=== PATIENT | male | born 1935 | race African-American/Black ===

== ENCOUNTER 2019-08-19 10:58 | Emergency (ER) | payer SELFPAY ==
[~2019-08-19] VITALS: Ht 180.3 cm; Wt 77.3 kg
[~2019-08-19 10:58] MED LIST: ASPI-986 PO; CLOP75TA4 PO; FAMO40TA70 PO; SIMV80TA90 PO
[2019-08-19] MEDS ORDERED: SODIUM CHLORIDE 0.9% 1,000 ML IV ONE (12:01)
[2019-08-19 12:33] LABS: HEMOGLOBIN. 13.7 g/dL (14.0-18.0); MEAN CORPUSCULAR HEMOGLOBIN 34.1 pg (28.0-32.0); MEAN CORPUSCULAR VOLUME 99.9 fL (80.0-94.0); MEAN PLATELET VOLUME 8.2 fl (7.4-10.4); PLATELET 223 x1000/uL (130-400); RED CELL DISTRIBUTION WIDTH 13.1 % (11.6-14.6)
[2019-08-19 12:40] LABS: CHLORIDE 109 mEq/L (98-107)
[2019-08-19 12:55] LABS: PLATELET ESTIMATE NORMAL
[2019-08-19 12:59] LABS: CLARITY URINE CLEAR (CLEAR); COLOR URINE YELLOW (YELLOW); KETONES URINE NEGATIVE (NEGATIVE); LEUKOCYTE ESTERASE URINE NEGATIVE (NEGATIVE); NITRITE URINE NEGATIVE (NEGATIVE); OCCULT BLOOD URINE NEGATIVE (NEGATIVE); PH URINE 5.5 (4.5-8.0); PROTEIN URINE NEGATIVE (NEGATIVE); SPECIFIC GRAVITY URINE 1.015 (1.005-1.030); UROBILINOGEN URINE 0.2 E.U./dL (0.2-1.0)
[2019-08-19 16:07] VITALS: BP 130/76
== END 2019-08-19 16:09 | disposition home or self-care (01) ==
LOC: ER 10:58 → CANBEDREQ 16:20
DX: M54.12 Radiculopathy, cervical region (principal); I10 Essential (primary) hypertension; I11.9 Hypertensive heart disease without heart failure
CPT/HCPCS: 36415; 70450; 71045; 72141; 80053; 81003; 82962; 83690; 83735; 83880; 84484; 85025; 93005; 99285; J7030

== ENCOUNTER → 2019-11-21 | Outpatient (CLI) | payer MEDICARE ==
[~2019-11-21] MED LIST changes: +ASPI-1158 MT; +ATOR40TA70 PO; +FINA5TAB11 PO; +HYDR-4001 MT; +IRBE150T24 PO
== END | disposition home or self-care (01) ==
LOC: RAD 12:42
PROVIDERS: ATTEND Specialist
DX: Z01.818 Encounter for other preprocedural examination (principal); J44.9 Chronic obstructive pulmonary disease, unspecified; R91.1 Solitary pulmonary nodule
CPT/HCPCS: 71045

== ENCOUNTER 2019-11-25 05:32 | Inpatient (IN) | payer MEDICARE ==
[2019-11-25] VITALS (59 sets, daily range): BP systolic 87–153; BP diastolic 52–115
[~2019-11-25] VITALS: Ht 180.3 cm; Wt 80.3 kg
[~2019-11-25 05:32] MED LIST changes: -ASPI-1158 MT; -ATOR40TA70 PO; -FINA5TAB11 PO; -HYDR-4001 MT; -IRBE150T24 PO
[2019-11-25] MEDS ORDERED: IRBE150T24 PO (06:11)
[2019-11-25] MEDS ORDERED: FINA5TAB11 PO (06:11)
[2019-11-25] MEDS ORDERED: ATOR40TA70 PO (06:15)
[2019-11-25] MEDS ORDERED: LACTATED RINGERS 1,000 ML IV SCH (06:15)
[2019-11-25] MEDS ORDERED: LIDOCAINE HCL/EPINEPHRINE 1%-EPI 1:100,000 20 ML VIAL ONE (06:34)
[2019-11-25] MEDS ORDERED: BACITRACIN 50,000 UNITS/VIAL ONE (06:35)
[2019-11-25] MEDS ORDERED: THROMBIN (BOVINE) 5000 UNITS/VIAL TOP ONE (06:35)
[2019-11-25] MEDS ORDERED: ROCURONIUM BROMIDE 10MG/ML VIAL 5ML IV ONE (06:48)
[2019-11-25] MEDS ORDERED: PROPOFOL 200MG/20ML VIAL IV ONE (06:48)
[2019-11-25] MEDS ORDERED: NEOSTIGMINE METHYLSULFATE 1MG/ML 10 ML VIAL ONE (06:48)
[2019-11-25] MEDS ORDERED: FENTANYL CITRATE/PF 50MCG/ML 2ML VIAL ONE (06:48)
[2019-11-25] MEDS ORDERED: GLYCOPYRROLATE 0.2 MG/ML 2ML VIAL ONE ×3 (06:49→09:22)
[2019-11-25] MEDS ORDERED: MIDAZOLAM HCL 2 MG/2 ML VIAL ONE (06:49)
[2019-11-25] MEDS ORDERED: DEXAMETHASONE 4MG/ML 1ML VIAL ONE (06:50)
[2019-11-25] MEDS ORDERED: ONDANSETRON HCL 4MG/2ML INJ ONE (06:50)
[2019-11-25] MEDS ORDERED: MORPHINE SULFATE 4 MG/ML CPJ (NOT FOR IM USE) IV PRN (07:15)
[2019-11-25] MEDS ORDERED: HYDROCODONE/ACETAMINOPHEN 5/325MG TABLET PO PRN (07:15)
[2019-11-25] MEDS ORDERED: ONDANSETRON HCL 4MG/2ML INJ IV PRN (07:15)
[2019-11-25] MEDS ORDERED: HYDROMORPHONE HCL/PF 2MG/ML (OR) ONE (07:25)
[2019-11-25] MEDS ORDERED: EPINEPHRINE 1:1000 1 MG/ML AMP ONE (08:58)
[2019-11-25] MEDS ORDERED: CEFAZOLIN SODIUM 1000MG/VIAL ONE (08:58)
[2019-11-25] MEDS ORDERED: SODIUM CHLORIDE 0.9% 10ML VIAL ONE (08:59)
[2019-11-25] MEDS ORDERED: LIDOCAINE HCL/PF 1% 10 MG/ML 5ML VIAL ONE (08:59)
[2019-11-25] MEDS ORDERED: LABETALOL HCL 5MG/ML VIAL 20ML IV ONE (08:59)
[2019-11-25] MEDS ORDERED: NALOXONE INJ IV PRN (11:45)
[2019-11-25] MEDS ORDERED: ONDANSETRON INJ IV PRN (11:45)
[2019-11-25] MEDS: HYDROMORPHONE PCA 10MG/50ML IV PRN (12:06)
[2019-11-25] MEDS: DEXT 5%/LACTATED RINGERS 1,000 ML IV SCH ×3 (12:10→19:37)
[2019-11-25] MEDS: NICARDIPINE 100 MG in SODIUM CHLORIDE 0.9% 60 ML IV PRN (12:11)
[2019-11-25] MEDS: DEXAMETHASONE 4MG/ML 1ML VIAL IV SCH ×3 (12:12→17:54)
[2019-11-25] MEDS ORDERED: CEFAZOLIN SODIUM 1000MG/VIAL IV SCH (14:00)
[2019-11-25] MEDS: CEFAZOLIN 1000MG PREMIX 50 ML IV SCH (17:17)
[2019-11-25] MEDS: ATORVASTATIN CALCIUM 20MG TABLET PO SCH (20:05)
[2019-11-26] VITALS (41 sets, daily range): BP systolic 67–167; BP diastolic 51–96
[2019-11-26] MEDS: DEXAMETHASONE 4MG/ML 1ML VIAL IV SCH ×3 (00:35→12:43)
[2019-11-26] MEDS: CEFAZOLIN 1000MG PREMIX 50 ML IV SCH ×3 (01:42→17:25)
[2019-11-26] MEDS ORDERED: ASPIRIN 81MG TABLET PO SCH (05:00)
[2019-11-26] MEDS: DEXT 5%/LACTATED RINGERS 1,000 ML IV SCH (06:31)
[2019-11-26 06:49] LABS: HEMATOCRIT. 31.5 % (42.0-52.0); HEMOGLOBIN. 10.9 g/dL (14.0-18.0); MEAN CORPUSCULAR HEMOGLOBIN 34.5 pg (28.0-32.0); MEAN CORPUSCULAR VOLUME 99.4 fL (80.0-94.0); MEAN PLATELET VOLUME 7.7 fl (7.4-10.4); PLATELET 180 x1000/uL (130-400); RED BLOOD CELL COUNT 3.17 mill/uL (4.7-6.1); RED CELL DISTRIBUTION WIDTH 13.5 % (11.6-14.6)
[2019-11-26 07:48] LABS: CHLORIDE 105 mEq/L (98-107)
[2019-11-26 14:21] LABS: PLATELET ESTIMATE NORMAL
[2019-11-26] MEDS: ATORVASTATIN CALCIUM 20MG TABLET PO SCH (20:52)
[2019-11-27] VITALS (94 sets, daily range): BP systolic 102–164; BP diastolic 52–99
[2019-11-27] MEDS: CEFAZOLIN 1000MG PREMIX 50 ML IV SCH ×2 (01:31→10:16)
[2019-11-27] MEDS: NICARDIPINE 100 MG in SODIUM CHLORIDE 0.9% 60 ML IV PRN (01:31)
[2019-11-27] MEDS: HYDROMORPHONE PCA 10MG/50ML IV PRN (02:13)
[2019-11-27 07:20] LABS: HEMATOCRIT. 32.6 % (42.0-52.0); HEMOGLOBIN. 11.1 g/dL (14.0-18.0); MEAN CORPUSCULAR VOLUME 99.8 fL (80.0-94.0); MEAN PLATELET VOLUME 8.5 fl (7.4-10.4); PLATELET 207 x1000/uL (130-400); RED BLOOD CELL COUNT 3.26 mill/uL (4.7-6.1); RED CELL DISTRIBUTION WIDTH 13.6 % (11.6-14.6)
[2019-11-27 07:29] LABS: CHLORIDE 104 mEq/L (98-107)
[2019-11-27 12:31] LABS: PLATELET ESTIMATE NORMAL
[2019-11-27] MEDS ORDERED: BISACODYL 10MG SUPP PR PRN (15:45)
[2019-11-27] MEDS: LACTULOSE 20G/30ML UDC PO SCH ×2 (17:00→20:41)
[2019-11-27] MEDS: DOCUSATE SODIUM 100MG CAPSULE PO SCH (17:00)
[2019-11-27] MEDS: DEXAMETHASONE 4MG/ML 1ML VIAL IV SCH (17:00)
[2019-11-27] MEDS: POLYETHYLENE GLYCOL 3350 (17GM) 1 DOSE PACK PO SCH (20:42)
[2019-11-27] MEDS: ATORVASTATIN CALCIUM 20MG TABLET PO SCH (21:34)
[2019-11-28] VITALS (44 sets, daily range): BP systolic 101–170; BP diastolic 22–102
[2019-11-28] MEDS: DEXAMETHASONE 4MG/ML 1ML VIAL IV SCH ×4 (00:08→17:14)
[2019-11-28 07:00] LABS: HEMATOCRIT. 32.5 % (42.0-52.0); HEMOGLOBIN. 11.1 g/dL (14.0-18.0); MEAN CORPUSCULAR HEMOGLOBIN 34.2 pg (28.0-32.0); MEAN PLATELET VOLUME 8.7 fl (7.4-10.4); PLATELET 199 x1000/uL (130-400); RED BLOOD CELL COUNT 3.25 mill/uL (4.7-6.1); RED CELL DISTRIBUTION WIDTH 13.6 % (11.6-14.6)
[2019-11-28 07:40] LABS: CHLORIDE 103 mEq/L (98-107)
[2019-11-28] MEDS: DOCUSATE SODIUM 100MG CAPSULE PO SCH ×2 (08:31→17:14)
[2019-11-28] MEDS: LACTULOSE 20G/30ML UDC PO SCH ×3 (08:31→20:43)
[2019-11-28 10:05] LABS: PLATELET ESTIMATE NORMAL
[2019-11-28] MEDS: ATORVASTATIN CALCIUM 20MG TABLET PO SCH (20:43)
[2019-11-28] MEDS: POLYETHYLENE GLYCOL 3350 (17GM) 1 DOSE PACK PO SCH (20:44)
[2019-11-29] VITALS: BP 154/84
[2019-11-29] MEDS: HYDROMORPHONE PCA 10MG/50ML IV PRN (00:20)
[2019-11-29 04:00] VITALS: BP 159/84
[2019-11-29 05:43] LABS: HEMATOCRIT. 32.7 % (42.0-52.0); HEMOGLOBIN. 11.2 g/dL (14.0-18.0); MEAN CORPUSCULAR HEMOGLOBIN 34.2 pg (28.0-32.0); MEAN CORPUSCULAR VOLUME 99.9 fL (80.0-94.0); MEAN PLATELET VOLUME 8.5 fl (7.4-10.4); PLATELET 220 x1000/uL (130-400); RED BLOOD CELL COUNT 3.28 mill/uL (4.7-6.1); RED CELL DISTRIBUTION WIDTH 13.3 % (11.6-14.6)
[2019-11-29 06:01] LABS: CHLORIDE 103 mEq/L (98-107)
[2019-11-29] MEDS: DOCUSATE SODIUM 100MG CAPSULE PO SCH ×2 (09:00→17:00)
[2019-11-29] MEDS: LACTULOSE 20G/30ML UDC PO SCH ×3 (09:00→17:00)
[2019-11-29 12:00] VITALS: BP 153/64
[2019-11-29] MEDS: AMLODIPINE 5MG TABLET PO SCH (13:21)
[2019-11-29 13:26] LABS: PLATELET ESTIMATE NORMAL
[2019-11-29 16:00] VITALS: BP 161/83
[2019-11-29 20:00] VITALS: BP 142/77
[2019-11-29] MEDS: POLYETHYLENE GLYCOL 3350 (17GM) 1 DOSE PACK PO SCH (21:02)
[2019-11-29] MEDS: ATORVASTATIN CALCIUM 20MG TABLET PO SCH (21:02)
[2019-11-30] VITALS: BP 135/79
[2019-11-30 04:00] VITALS: BP 117/87
[2019-11-30 08:00] VITALS: BP 108/69
[2019-11-30 08:01] LABS: HEMATOCRIT. 35.4 % (42.0-52.0); HEMOGLOBIN. 12.3 g/dL (14.0-18.0); MEAN CORPUSCULAR HEMOGLOBIN 34.3 pg (28.0-32.0); MEAN CORPUSCULAR VOLUME 98.6 fL (80.0-94.0); MEAN PLATELET VOLUME 8.3 fl (7.4-10.4); PLATELET 255 x1000/uL (130-400); RED BLOOD CELL COUNT 3.59 mill/uL (4.7-6.1); RED CELL DISTRIBUTION WIDTH 13.4 % (11.6-14.6)
[2019-11-30 08:02] LABS: CHLORIDE 103 mEq/L (98-107)
[2019-11-30] MEDS: DOCUSATE SODIUM 100MG CAPSULE PO SCH ×2 (08:39→17:17)
[2019-11-30] MEDS: AMLODIPINE 5MG TABLET PO SCH (08:47)
[2019-11-30] MEDS ORDERED: ASPI-1158 MT (11:30)
[2019-11-30] MEDS ORDERED: HYDR-4001 MT (11:47)
[2019-11-30 12:00] VITALS: BP 110/63
[2019-11-30] MEDS ORDERED: HYDROCODONE/APAP 7.5/325MG 1 TAB TABLET PO PRN (13:30)
[2019-11-30] MEDS ORDERED: HYDROMORPHONE HCL/PF 2MG/ML CPJ IV PRN (13:30)
[2019-11-30 14:26] LABS: PLATELET ESTIMATE NORMAL
[2019-11-30 15:52] VITALS: BP 110/63
[2019-11-30 16:00] VITALS: BP 104/61
== END 2019-11-30 18:30 | disposition home or self-care (01) | DRG 28 ==
LOC: OR 05:32 → 5EST 05:33 → 5WST 11-28 22:55
PROVIDERS: ADMIT Neurological Surgery; ATTEND Internal Medicine
PROC: 0RG20K1 Fusion of 2 or more Cervical Vertebral Joints with Nonautologous Tissue Substitute, Posterior Approach, Posterior Column, Open Approach (ICD-10-PCS; principal; 2019-11-25)
DX: I63.9 Cerebral infarction, unspecified (principal); G82.50 Quadriplegia, unspecified; G95.20 Unspecified cord compression; I50.32 Chronic diastolic (congestive) heart failure; K59.2 Neurogenic bowel, not elsewhere classified; M48.02 Spinal stenosis, cervical region; I34.0 Nonrheumatic mitral (valve) insufficiency; I11.0 Hypertensive heart disease with heart failure; Z96.643 Presence of artificial hip joint, bilateral; Z95.5 Presence of coronary angioplasty implant and graft; I25.10 Atherosclerotic heart disease of native coronary artery without angina pectoris; N40.0 Benign prostatic hyperplasia without lower urinary tract symptoms; E78.5 Hyperlipidemia, unspecified; D64.9 Anemia, unspecified; D72.829 Elevated white blood cell count, unspecified; E78.00 Pure hypercholesterolemia, unspecified; G31.84 Mild cognitive impairment of uncertain or unknown etiology; K59.00 Constipation, unspecified; M48.061 Spinal stenosis, lumbar region without neurogenic claudication; N40.1 Benign prostatic hyperplasia with lower urinary tract symptoms; Z82.49 Family history of ischemic heart disease and other diseases of the circulatory system; Z91.81 History of falling; R26.89 Other abnormalities of gait and mobility; R31.9 Hematuria, unspecified
CPT/HCPCS: 36415; 70544; 70553; 72040; 72141; 76000; 80048; 82962; 83735; 85025; 86850; 86900; 88304; 88311; 92523; 92610; 93005; 93306; 93880; 95925; 95926; 95928; 95929; 95940; 97110; 97112; 97116; 97163; 97166; 97530; 97535; C1713; J0690; J1100; J1170; J2250; J2270; J2405; J2704; J2710; J3010; J3490; J7050; J7121; L0172

== ENCOUNTER 2019-12-12 11:49 | Emergency (ER) | payer MEDICARE ==
[~2019-12-12] VITALS: Ht 180.3 cm; Wt 76.0 kg
[~2019-12-12 11:49] MED LIST changes: +ASPI-1158 MT; -ASPI-986 PO; +ATOR40TA70 PO; -CLOP75TA4 PO; +FINA5TAB11 PO; +HYDR-4001 MT; +IRBE150T24 PO; -SIMV80TA90 PO
[2019-12-12] MEDS ORDERED: NA PHOS,M-B/NA PHOS,DI-BA ENEMA 118ML PR ONE (13:45)
[2019-12-12 14:02] LABS: CLARITY URINE CLEAR (CLEAR); COLOR URINE YELLOW (YELLOW); KETONES URINE NEGATIVE (NEGATIVE); LEUKOCYTE ESTERASE URINE NEGATIVE (NEGATIVE); NITRITE URINE NEGATIVE (NEGATIVE); OCCULT BLOOD URINE NEGATIVE (NEGATIVE); PROTEIN URINE NEGATIVE (NEGATIVE); SPECIFIC GRAVITY URINE 1.019 (1.005-1.030)
[2019-12-12 16:30] VITALS: BP 106/46
== END 2019-12-12 17:01 | disposition home or self-care (01) ==
LOC: ER 11:49
DX: K59.00 Constipation, unspecified (principal); G89.18 Other acute postprocedural pain; I10 Essential (primary) hypertension; Z76.0 Encounter for issue of repeat prescription; N40.0 Benign prostatic hyperplasia without lower urinary tract symptoms; Z98.1 Arthrodesis status
CPT/HCPCS: 81003; 99283

== ENCOUNTER 2022-08-22 14:17 | Emergency (ER) | payer MEDICARE ==
[~2022-08-22] VITALS: Ht 180.3 cm; Wt 80.0 kg
[~2022-08-22 14:17] MED LIST changes: -ASPI-1158 MT; +ASPI-1406 MT
[2022-08-22] MEDS ORDERED: IBUPROFEN 600MG TABLET PO ONE (17:30)
[2022-08-22] MEDS ORDERED: CYCL10TA21 MT (17:42)
[2022-08-22] MEDS ORDERED: IBUP-2029 MT (17:42)
[2022-08-22 17:43] VITALS: BP 165/96
== END 2022-08-22 17:51 | disposition home or self-care (01) ==
LOC: ER 14:17
DX: S60.221A Contusion of right hand, initial encounter (principal); M19.041 Primary osteoarthritis, right hand; I10 Essential (primary) hypertension; I25.2 Old myocardial infarction; Z98.1 Arthrodesis status; Z98.61 Coronary angioplasty status; Z79.82 Long term (current) use of aspirin; W10.8XXA Fall (on) (from) other stairs and steps, initial encounter; Y93.89 Activity, other specified; Y92.018 Other place in single-family (private) house as the place of occurrence of the external cause
CPT/HCPCS: 73130; 99283; A4565

== ENCOUNTER 2023-06-16 09:31 | Emergency (ER) | payer MEDICARE ==
[~2023-06-16] VITALS: Ht 175.3 cm; Wt 68.0 kg
[~2023-06-16 09:31] MED LIST changes: +CYCL10TA21 MT; +IBUP-2029 MT
[2023-06-16 09:40] VITALS: BP 130/76; O2SAT 100
[2023-06-16] MEDS ORDERED: BACITRACIN ZINC OINT UDPKT TOP ONE (11:45)
[2023-06-16] MEDS ORDERED: DOXY100T28 MT (12:48)
[2023-06-16] MEDS ORDERED: BO1 TP (12:48)
[2023-06-16 13:21] VITALS: PULSE 71; RESP 20; TEMP 97.6
== END 2023-06-16 13:23 | disposition home or self-care (01) ==
LOC: ER 09:31
DX: S80.811A Abrasion, right lower leg, initial encounter (principal); I25.2 Old myocardial infarction; I10 Essential (primary) hypertension; Z86.73 Personal history of transient ischemic attack (TIA), and cerebral infarction without residual deficits; W01.0XXA Fall on same level from slipping, tripping and stumbling without subsequent striking against object, initial encounter; Y93.89 Activity, other specified; Y92.89 Other specified places as the place of occurrence of the external cause; Y99.8 Other external cause status
CPT/HCPCS: 73590; 99283